=== PATIENT | male | born 1980 | race African-American/Black ===

== ENCOUNTER 2016-09-26 13:45 | Emergency (ER) | payer BC ==
[2016-09-26 13:56] VITALS: BP 130/89
[2016-09-26] MEDS ORDERED: Sodium Chloride 0.9% 1,000 ML IV ONE ×2 (14:23→16:25)
[2016-09-26] MEDS ORDERED: Sodium Chloride 0.9% 10 ML Syringe FLUSH PRN (14:23)
--- NOTE | 2016-09-26 14:38 | EDM.PDOC ---
ED HPI GENERAL MEDICAL PROBLEM - General Chief Complaint: Fever Stated Complaint: FEVER/HEAD PAIN/RACING HEART Time Seen by Provider: 09/26/16 14:06 Source of Information: Reports: Patient History Limitations: Reports: No Limitations - History of Present Illness INITIAL COMMENTS - FREE TEXT/NARRATIVE: 36-year-old male presents for evaluation treatment of a headache and fever. Patient reports that his symptoms have been present since Sunday of last week. States that they're not improving and have remained the same. He reports he has had headaches that have resolved with ibuprofen. Reports they're located behind his eyes. He states that he has had a fever but has not taken his temperature. Reportedly is felt chills and feverish. Associated symptoms of neck pain and back pain. Last dose of ibuprofen was about 1 hour prior to arrival. He states that he is "hyperventilating." He denies any nausea, vomiting , cough, shortness of breath, chest pain, abdominal pain, diarrhea, skin rashes or any urinary symptoms. Patient reports that he recently traveled to [place] but no travel out of country. He denies any ill contacts. He reports that his immunizations are up-to-date. 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 Generalized Pain Score (Numeric/FACES): 3 - Related Data Allergies Allergy/AdvReac Type Severity Reaction Status Date / Time egg Allergy Body Aches Verified 09/26/16 13:51 Home Meds: Home Meds Azithromycin [IJD: Azithromycin] 250 mg PO DAILY #4 tab 09/26/16 [Rx] Ibuprofen [Motrin] 800 mg PO Q4H PRN 09/26/16 [History] Past Medical History - Past Surgical History Musculoskeletal Surgical History: Reports: Other (See Below) Other Musculoskeletal Surgeries/Procedures:: low back surgery for a herniated disc Social & Family History - Tobacco Use Smoking Status *Q: Never Smoker - Caffeine Use Caffeine Use: Reports: Coffee - Alcohol Use Days Per Week of Alcohol Use: 2 Number of Drinks Per Day: 6 Total Drinks Per Week: 12 - Recreational Drug Use Recreational Drug Use: No ED ROS GENERAL - Review of Systems Review Of Systems: See Below Constitutional: Reports: Fever HEENT: Denies: Ear Pain, Throat Pain Respiratory: Reports: Other (hyperventilating). Denies: Shortness of Breath Cardiovascular: Denies: Chest Pain GI/Abdominal: Denies: Abdominal Pain, Diarrhea, Nausea, Vomiting : Reports: No Symptoms. Denies: Dysuria Musculoskeletal: Reports: Neck Pain, Back Pain Neurological: Reports: Headache - Physical Exam Exam: See Below Exam Limited By: No Limitations General Appearance: Alert, WD/WN, No Apparent Distress Ears: Normal External Exam, Normal Canal, Normal TMs Nose: Normal Inspection Throat/Mouth: Normal Inspection, Normal Voice, No Airway Compromise Neck: Normal Inspection, Supple, Non-Tender, Full Range of Motion. No: Lymphadenopathy (L), Lymphadenopathy (R) Respiratory/Chest: No Respiratory Distress, Lungs Clear, Normal Breath Sounds Cardiovascular: Normal Peripheral Pulses, Regular Rate, Rhythm, No Murmur GI/Abdominal: Soft, Non-Tender Neuro Exam (Abbreviated): Alert, Oriented, Normal Cognition Psychiatric: Normal Affect, Normal Mood Skin Exam: Warm, Dry, Normal Color Course - Vital Signs Last Recorded V/S: Last Vital Signs Temp 36.9 C 09/26/16 13:51 Pulse 93 09/26/16 13:51 Resp 18 09/26/16 13:51 BP 130/89 09/26/16 13:51 Pulse Ox 95 09/26/16 13:51 - Orders/Labs/Meds Orders: Active Orders 24 hr Category Date Time Status Peripheral IV Care [RC] . DIRECTED Care 09/26/16 14:23 Active RT Post Treatment Assessment [RC] Click To Edit Care 09/26/16 18:02 Active RT Pre-Treatment Assessment [RC] Click To Edit Care 09/26/16 18:02 Active CULTURE STREP A CONFIRMATION [] Stat Lab 09/26/16 15:24 Results STREP SCRN A RAPID W CULT CONF [RM] Stat Lab 09/26/16 15:24 Results Peripheral IV Insertion Adult [OM.PC] Routine Oth 09/26/16 14:23 Ordered Labs: Laboratory Tests 09/26/16 09/26/16 09/26/16 Range/Units 14:35 14:35 16:20 WBC 8.84 (4.23-9.07) K/mm3 RBC 4.73 (4.63-6.08) M/mm3 Hgb 13.6 L (13.7-17.5) gm/L Hct 39.9 L (40.1-51.0) % MCV 84.4 (79.0-92.2) fl MCH 28.8 (25.7-32.2) pg MCHC 34.1 (32.2-35.5) g/dl RDW Std Deviation 38.9 (35.1-43.9) fL Plt Count 283 (163-337) K/mm3 MPV 10.2 (9.4-12.3) fl Neutrophils % (Manual) 79 H (40-60) % Band Neutrophils % 1 (0-10) % Lymphocytes % (Manual) 12 L (20-40) % Atypical Lymphs % 0 % Monocytes % (Manual) 7 (2-10) % Eosinophils % (Manual) 1 (0.8-7.0) % Basophils % (Manual) 0 L (0.2-1.2) Platelet Estimate Adequate RBC Morph Comment Normal Sodium 135 L (136-145) mEq/L Potassium 3.4 L (3.5-5.1) mEq/L Chloride 99 (98-107) mEq/L Carbon Dioxide 22 (21-32) mEq/L Anion Gap 17.4 H (5-15) BUN 8 (7-18) mg/dL Creatinine 1.3 (0.7-1.3) mg/dL Est Cr Clr Drug Dosing 82.67 mL/min Estimated GFR (MDRD) > 60 (>60) mL/min BUN/Creatinine Ratio 6.2 L (14-18) Glucose 133 H (74-106) mg/dL Calcium 8.3 L (8.5-10.1) mg/dL Total Bilirubin 0.4 (0.2-1.0) mg/dL AST 21 (15-37) U/L ALT 16 (16-63) U/L Alkaline Phosphatase 45 L (46-116) U/L C-Reactive Protein 10.1 H* (<1.0) mg/dL Total Protein 7.7 (6.4-8.2) g/dl Albumin 3.0 L (3.4-5.0) g/dl Globulin 4.7 gm/dL Albumin/Globulin Ratio 0.6 L (1-2) Urine Color Yellow (Yellow) Urine Appearance Clear (Clear) Urine pH 7.0 (5.0-8.0) Ur Specific [place] 1.015 (1.005-1.030) Urine Protein 1+ H (Negative) Urine Glucose (UA) Negative (Negative) Urine Ketones 1+ H (Negative) Urine Occult Blood Negative (Negative) Urine Nitrite Negative (Negative) Urine Bilirubin 1+ H (Negative) Urine Urobilinogen 4.0 H (0.2-1.0) Ur Leukocyte Esterase Negative (Negative) Urine RBC 0-5 (0-5) /hpf Urine WBC 0-5 (0-5) /hpf Ur Epithelial Cells 0-5 (0-5) /hpf Urine Bacteria Few (FEW) /hpf Urine Mucus Few (FEW) /hpf Meds: Medications Discontinued Medications Generic Name Dose Route Start Last Admin Trade Name Freq PRN Reason Stop Dose Admin Albuterol 1 gm 09/26/16 18:01 09/26/16 18:20 Proventil Hfa INH 09/26/16 18:02 2 puff ONETIME ONE Administration Azithromycin 500 mg 09/26/16 18:15 09/26/16 18:48 Zithromax PO 500 mg DAILY PERRY Administration Sodium Chloride 1,000 mls @ 999 mls/hr 09/26/16 14:23 09/26/16 14:40 Normal Saline IV 09/26/16 15:23 999 mls/hr ONETIME ONE Administration Sodium Chloride 1,000 mls @ 999 mls/hr 09/26/16 16:25 09/26/16 17:15 Normal Saline IV 09/26/16 17:25 999 mls/hr ONETIME ONE Administration Levofloxacin/Dextrose 750 mg/ 150 mls @ 100 mls/hr 09/26/16 16:38 09/26/16 17 :24 Premix IV 09/26/16 18:07 100 mls/hr ONETIME ONE Administration Ketorolac Tromethamine 30 mg 09/26/16 16:46 09/26/16 17:16 Toradol IVPUSH 09/26/16 16:47 30 mg ONETIME ONE Administration Sodium Chloride 10 ml 09/26/16 14:23 09/26/16 14:45 Saline Flush FLUSH 10 ml ASDIRECTED PRN Administration Keep Vein Open - Radiology Interpretation Free Text/Narrative:: chest 2 view shows increased density in the right lower lung. Concerning for pneumonia. Reviewed by myself and Dr. Krishna. - Re-Assessments/Exams Free Text/Narrative Re-Assessment/Exam: 09/26/16 18:08 Labs returned rapid strep is negative. WBC is 8.84 with 1% bands, hgb is 13.6 and plts are 283 Sodium is 135, potassium is 3.4 and chloride is 99. Glucose is 133. CRP is elevated at 10/3 UA has 1+ protein, 1+ ketones and 1+ bilib. 4.0 urobiliogen. Negative for leuks and nitrites. I reviewed the labs and xray with the patient. Levaquin IV was started for pneumonia. receiving 2nd bolus of fluid This point the patient is complaining of shortness of breath. He describes it as when he exercises. He has exercise-induced asthma. I ordered some albuterol for him. Reports this started after receiving the levaquin. Will discontinue the Levaquin and give by mouth azithromycin. Plan to monitor for a short time. 09/26/16 18:30 Patient doing well. Will discharge home with azithromyin and close follow-up. Departure - Departure Time of Disposition: 18:30 Disposition: Home, Self-Care 01 Condition: Fair Clinical Impression: Pneumonia - Discharge Information Prescriptions: Azithromycin [IJD: Azithromycin] 250 mg PO DAILY #4 tab Instructions: Community-Acquired Pneumonia, Adult, [id number] Referrals: PCP,None [Primary Care Provider] - Sierra Ybarra PA-C [Physician Purchasing Department Clerk] - Forms: ED Department Discharge, Return to Work/School Form Additional Instructions: Take the azithromycin as prescribed. 1 tab daily. You first dose was given in the ER. Start your prescription tomorrow, 09/27/16. Continue with [id number] Tylenol or Motrin as needed for pain relief. Rest and drink plenty of fluids. Follow-up with family medicine the end of this week or early next week. Recommend Sierra Ybarra at the [facility]. Call [phone] schedule with her. Please return the ER if your symptoms change or worsen. Note for work given. - My Orders Last 24 Hours: My Active Orders 09/26/16 14:23 Peripheral IV Care [RC] . DIRECTED Peripheral IV Insertion Adult [OM.PC] Routine 09/26/16 15:24 CULTURE STREP A CONFIRMATION [RM] Stat STREP SCRN A RAPID W CULT CONF [RM] Stat 09/26/16 18:02 RT Post Treatment Assessment [RC] Click To Edit RT Pre-Treatment Assessment [RC] Click To Edit - Assessment/Plan Last 24 Hours: My Active Orders 09/26/16 14:23 Peripheral IV Care [RC] . DIRECTED Peripheral IV Insertion Adult [OM.PC] Routine 09/26/16 15:24 CULTURE STREP A CONFIRMATION [] Stat STREP SCRN A RAPID W CULT CONF [] Stat 09/26/16 18:02 RT Post Treatment Assessment [RC] Click To Edit RT Pre-Treatment Assessment [RC] Click To Edit
[2016-09-26] MEDS ORDERED: Levofloxacin/Dextrose 5%-Water 750 MG in Premix Bag 1 BAG IV ONE (16:38)
[2016-09-26] MEDS ORDERED: Ketorolac 30 MG/ML SDV IVPUSH ONE (16:46)
[2016-09-26] MEDS ORDERED: Albuterol 6.7 GM Inhaler INH ONE (18:01)
[2016-09-26] MEDS ORDERED: Azithromycin 250 MG Tab PO SCH (18:15)
--- NOTE | 2016-09-27 08:02 | CR ---
Chest: Two views of the chest were obtained. Comparison: No previous chest x-ray. Mild increased density noted within the right lung base. Lungs otherwise are clear. Heart size and mediastinum are normal. Bony structures are within normal limits. Impression: 1. Increased density within the right lung base most likely due to pneumonia. Diagnostic code #3
== END 2016-09-26 18:52 | disposition home or self-care (01) ==
LOC: JD.ED 13:45
DX: J18.9 Pneumonia, unspecified organism (principal)
CPT/HCPCS: 36415; 71020; 80053; 81001; 85025; 86140; 87081; 87430; 96361; 96365; 96375; 99284; A9270; J1885; J1956; J7040; J7050